=== PATIENT | male | born 1950 | race Caucasian/White ===

== ENCOUNTER 2018-01-10 07:08 | Outpatient (CLI) | payer MEDICARE, OTHER ==
--- NOTE | 2018-01-10 09:32 | Ultrasound Report ---
THYROID ULTRASOUND: 01/10/2018 CLINICAL INDICATION: Thyroid enlargement. TECHNIQUE: Real-time scanning was performed with special service representative static images obtained. FINDINGS: The right lobe measures 4.7 x 2.3 x 1.5 cm, and the left lobe measures 4.8 x 1.7 x 1.5 cm. The isthmus measures 3 mm. The thyroid demonstrates homogeneous echotexture bilaterally. No solid or cystic lesion is appreciated. No adenopathy is seen. IMPRESSION: NORMAL THYROID ULTRASOUND. TD: 01/10/2018 09:31
== END 2018-01-10 07:09 | disposition home or self-care (01) ==
LOC: DI 07:08
PROVIDERS: ATTEND Family Medicine
DX: E04.9 Nontoxic goiter, unspecified (principal)
CPT/HCPCS: 76536

== ENCOUNTER 2018-01-10 07:10 | Outpatient (CLI) | payer MEDICARE, OTHER ==
--- NOTE | 2018-01-10 12:22 | Ultrasound Report ---
ULTRASOUND OF LEFT BREAST: 01/10/2018 CLINICAL INDICATION: Painful palpable abnormality left upper inner quadrant. TECHNIQUE: Real-time scanning was performed with automotive leasing sales representative static images obtained. FINDINGS: Ultrasound of the painful palpable abnormality identified by the patient was performed. At this site, there is a 4 x 3 x 2 mm lymph node. No sonographically suspicious findings are identified. IMPRESSION: TINY LYMPH NODE, ACCOUNTING FOR THE PALPABLE ABNORMALITY. RECOMMENDATION: CONTINUED CLINICAL FOLLOWUP. BIRADS CATEGORY 2-BENIGN FINDINGS. TD: 01/10/2018 12:21
--- NOTE | 2018-01-10 12:56 | Mammography Report ---
DIGITAL DIAGNOSTIC BILATERAL MAMMOGRAM: 01/10/2018 CLINICAL INDICATION: Pain. TECHNIQUE: Bilateral CC and MLO views. A marker was placed at the site of painful palpable abnormality identified by the patient in the left upper inner quadrant. FINDINGS: The breasts demonstrate fatty replacement bilaterally. In the left upper inner quadrant, in the region of the palpable abnormality, there is a 5 mm parenchymal density. No associated calcifications are seen. Please also refer to left breast ultrasound of the same day. IMPRESSION: BENIGN FINDINGS, WITH A SMALL LYMPH NODE ON ULTRASOUND, CORRELATING WITH THE PALPABLE AND MAMMOGRAPHIC ABNORMALITY. RECOMMENDATION: CONTINUED CLINICAL MANAGEMENT. BIRADS CATEGORY 2-BENIGN FINDINGS. STANDARD QUALIFYING STATEMENTS: 1. This examination was reviewed with the aid of Computer-Aided Detection (CAD). 2. A negative or benign imaging report should not delay biopsy if clinically suspicious findings are present. Consider surgical consultation if warranted. More than 5% of cancers are not identified by imaging. 3. Dense breasts may obscure an underlying neoplasm. TD: 01/10/2018 12:55
== END 2018-01-10 07:11 | disposition home or self-care (01) ==
LOC: DI 07:10
PROVIDERS: ATTEND Family Medicine
DX: N64.4 Mastodynia (principal); E04.9 Nontoxic goiter, unspecified
CPT/HCPCS: 76536; 76642; 77066

== ENCOUNTER 2020-10-11 10:56 | Outpatient (CLI) | payer MEDICARE, OTHER ==
--- NOTE | 2020-10-11 12:30 | XRAY Report ---
PROCEDURE: Foot 2 View BILAT INDICATIONS: BILATERAL FOOT PAIN TECHNIQUE: 4 views of the foot were acquired. COMPARISON: None FINDINGS: Bones: No fractures or dislocations. No suspicious bony lesions. Soft tissues: No tibiotalar joint effusion. Achilles tendon appears normal. IMPRESSION: Normal left foot Reviewed by: Man Sosa on 10/11/2020 12:29 PM [facility] Approved by: Man Sosa on 10/11/2020 12:29 PM [facility] Station ID: [id number]
== END 2020-10-11 23:59 | disposition home or self-care (01) ==
LOC: DI.N 10:56
PROVIDERS: ATTEND Family Medicine
DX: M79.671 Pain in right foot (principal); M79.672 Pain in left foot
CPT/HCPCS: 36415; 80048; 84550; 85025

== ENCOUNTER → 2020-10-11 | Outpatient (CLI) | payer MEDICARE, OTHER ==
[2020-10-11 18:47] LABS: BASOPHILS % (AUTO) 0.5 %; EOSINOPHILS # (AUTO) 0.2 10^3/uL (0.0-0.7); EOSINOPHILS % (AUTO) 4.7 %; HGB - HEMOGLOBIN 13.9 g/dL (14.0-18.0); LYMPHOCYTES % (AUTO) 22.5 %; MEAN CORPUSCULAR HEMOGLOBIN 32.4 pg (27.0-31.0); MEAN CORPUSCULAR VOLUME 98.1 fL (80.0-94.0); MEAN PLATELET VOLUME 10.1 fL (7.4-11.4); MONOCYTES # (AUTO) 0.5 10^3/uL (0.0-1.0); MONOCYTES % (AUTO) 10.5 %; NEUTROPHILS # (AUTO) 2.6 10^3/uL (1.5-6.6); NEUTROPHILS % (AUTO) 61.6 %; PLT - PLATELET COUNT 266 10^3/uL (130-450); RED BLOOD COUNT 4.29 10^6/uL (4.70-6.10); RED CELL DISTRIBUTION WIDTH 12.7 % (12.0-15.0); WHITE BLOOD COUNT 4.3 x10^3/uL (4.8-10.8)
[2020-10-11 18:58] LABS: CALCIUM 9.9 mg/dL (8.5-10.3); URIC ACID 5.9 mg/dL (2.6-7.2)
== END ==
LOC: LAB.N 11:01
PROVIDERS: ATTEND Family Medicine
DX: M79.673 Pain in unspecified foot (principal)
CPT/HCPCS: 36415; 80048; 84550; 85025

== ENCOUNTER 2023-01-21 10:16 | Outpatient (CLI) | payer MEDICARE, OTHER ==
--- NOTE | 2023-01-21 15:37 | XRAY Report ---
PROCEDURE: Knee 4 View BILAT INDICATIONS: BILAT KNEE PAIN TECHNIQUE: 4 views of the bilateral knee(s) were acquired. COMPARISON: X-ray knees 12/11/2018 FINDINGS: Bones: No fractures or dislocations. No suspicious bony lesions. There is bilateral moderate to s evere medial compartment narrowing shown mild progression compared to prior exam. Mild patellofemoral compartment narrowing is present bilaterally. Patella periarticular osteophytes are present. No eros ions. Soft tissues: Minimal bilateral effusions. No suspicious soft tissue calcifications. IMPRESSION: Prominent medial compartment arthritic change bilaterally slightly progressive compared to prior exam. Reviewed by: Zoie Santiago MD on 01/21/2023 3:36 PM PST Approved by: Zoie Santiago MD on 01/21/2023 3:36 PM PST Station ID: [id number]
== END 2023-01-21 10:36 | disposition home or self-care (01) ==
LOC: DI.WOS 10:16
PROVIDERS: ATTEND Physician Assistant Surgical
DX: M17.0 Bilateral primary osteoarthritis of knee (principal)

== ENCOUNTER 2023-02-02 13:57 | Outpatient (CLI) | payer MEDICARE, OTHER ==
--- NOTE | 2023-02-02 14:30 | XRAY Report ---
PROCEDURE: Hip 2 View RT INDICATIONS: RIGHT HIP PAIN TECHNIQUE: An AP view of the pelvis and a crosstable lateral view of the hip were acquired. COMPARISON: 09/02/2017 FINDINGS: Bones: No fractures or dislocations. No suspicious bony lesions. The visualized pelvic ring appear s intact. There is prominence of the bilateral superior anterior femoral head and neck junctions, con sistent with cam-type impingement. There is progression of bilateral degenerative arthritis of the hi ps, now moderate bilaterally. Soft tissues: No suspicious soft tissue calcifications or masses. Prostate implant seeds IMPRESSION: 1. Prostate implant seeds. No evidence of lytic or blastic bony disease. 2. No evidence of acute fracture or dislocation. 3. Cam-type impingement bilaterally with progressive, moderate bilateral hip degenerative change. Reviewed by: Minh Ribeiro MD on 02/02/2023 2:28 PM PDT Approved by: Minh Ribeiro MD on 02/02/2023 2:28 PM PDT Station ID: [id number]
== END 2023-02-02 14:01 | disposition home or self-care (01) ==
LOC: DI.WOS 13:57
PROVIDERS: ATTEND Physician Assistant Surgical
DX: M16.0 Bilateral primary osteoarthritis of hip (principal); M25.852 Other specified joint disorders, left hip; M25.851 Other specified joint disorders, right hip; Z92.3 Personal history of irradiation

== ENCOUNTER 2023-02-08 10:30 | Outpatient (CLI) | payer MEDICARE, OTHER ==
--- NOTE | 2023-02-08 11:21 | XRAY Report ---
PROCEDURE: Ankle 3 View RT INDICATIONS: RIGHT ANKLE PAIN TECHNIQUE: 3 views of the ankle were acquired. COMPARISON: None. FINDINGS: Bones: Plantar calcaneal enthesophyte. No fractures or dislocations. Tibiotalar joint space is maint ained. Ankle mortise is normally aligned. No suspicious bony lesions. Soft tissues: Small to moderate tibiotalar joint effusion. Achilles tendon appears normal. IMPRESSION: Small to moderate tibiotalar effusion without acute fracture or dislocation. Effusion ma y be due to ligamentous injury or degenerative change. Reviewed by: Tor Stephen MD on 02/08/2023 11:20 AM PDT Approved by: Tor Stephen MD on 02/08/2023 11:20 AM PDT Station ID: [id number]
== END 2023-02-08 23:59 | disposition home or self-care (01) ==
LOC: DI.WOS 10:30
PROVIDERS: ATTEND Physician Assistant Surgical
DX: M25.471 Effusion, right ankle (principal); M25.571 Pain in right ankle and joints of right foot

== ENCOUNTER 2023-09-23 10:15 | Outpatient (CLI) | payer MEDICARE, OTHER ==
--- NOTE | 2023-09-23 19:06 | XRAY Report ---
PROCEDURE: Knee 4 View RT INDICATIONS: RIGHT KNEE PAIN TECHNIQUE: 3 views of the knee was obtained. COMPARISON: None FINDINGS: Severe medial compartment joint space narrowing without marginal osteophyte. Mild patellofemoral join t space narrowing. Small joint effusion Bones: No fractures or dislocations. No suspicious bony lesions. Soft tissues: Small knee joint effusion. No suspicious soft tissue calcifications or masses. IMPRESSION: Moderate to severe osteoarthritis and small joint effusion Reviewed by: Santiago Shields MD on 09/23/2023 6:05 PM [facility] Approved by: Santiago Shields MD on 09/23/2023 6:05 PM [facility] Station ID: [id number]
== END 2023-09-23 23:59 | disposition home or self-care (01) ==
LOC: DI.WOS 10:15
PROVIDERS: ATTEND Orthopaedic Surgery
DX: M17.0 Bilateral primary osteoarthritis of knee (principal); M25.461 Effusion, right knee

== ENCOUNTER 2023-09-29 06:20 | Day surgery (SDC) | payer MEDICARE, OTHER ==
[2023-09-29] MEDS ORDERED: CELECOXIB 100 MG CAPSULE PO ONE (06:36)
[2023-09-29] MEDS ORDERED: ceFAZolin 2 GM VIAL ONE (06:37)
[2023-09-29] MEDS ORDERED: ACETAMINOPHEN 500 MG TABLET PO ONE (06:37)
[2023-09-29] MEDS ORDERED: DEXAMETHASONE 10 MG/ML VIAL ONE (06:37)
[2023-09-29] MEDS ORDERED: LACTATED RINGERS 1,000 ML IV ONE ×3 (06:48→11:11)
[2023-09-29] MEDS ORDERED: PROPOFOL 500 MG/50 ML 500 MG/50 ML VIAL ONE ×3 (06:53→11:28)
[2023-09-29] MEDS ORDERED: MIDAZOLAM 2 MG/2 ML VIAL ONE (06:56)
[2023-09-29] MEDS ORDERED: TRANEXAMIC ACID 1,000 MG/10 ML VIAL ONE ×2 (06:56→12:48)
[2023-09-29] MEDS ORDERED: ONDANSETRON 4 MG/2 ML VIAL ONE (06:56)
[2023-09-29] MEDS ORDERED: dexAMETHasone 4 MG TABLET PO ONE (07:00)
[2023-09-29] MEDS ORDERED: BUPIVACAINE 0.25% PF 30 ML VIAL ONE (07:03)
[2023-09-29] MEDS ORDERED: VANCOMYCIN 1 GM VIAL ONE (07:03)
[2023-09-29] MEDS ORDERED: KETOROLAC 30 MG/ML VIAL ONE (07:03)
[2023-09-29] MEDS ORDERED: fentaNYL 100 MCG/2 ML VIAL IVP PRN (07:18)
[2023-09-29] MEDS ORDERED: ATROPINE ABBOJECT 1 MG/10 ML SYRINGE IVP PRN (07:18)
[2023-09-29] MEDS ORDERED: ONDANSETRON 4 MG/2 ML VIAL IVP PRN ×2 (07:18→10:57)
[2023-09-29] MEDS ORDERED: HYDROmorphone 0.5 MG/0.5 ML SYRINGE IVP PRN (07:18)
[2023-09-29] MEDS ORDERED: NALOXONE 0.4 MG/ML VIAL IVP PRN (07:18)
[2023-09-29] MEDS ORDERED: ePHEDrine 50 MG/ML VIAL IVP PRN (07:18)
--- NOTE | 2023-09-29 07:18 | ANESTHESIA ---
Pre-Anesthesia VS, & Labs - Diagnosis b/l knee OA - Procedure r TKA Vital Signs: Temp Pulse Resp BP Pulse Ox O2 Flow Rate 36.3 C L 48 L 12 118/79 100 09/29/23 06:45 09/29/23 06:45 09/29/23 06:45 09/29/23 06:45 09/29/23 06:45 Height: 6 ft 1 in Weight (kg): 91.6 kg Body Mass Index: 26.6 BMI Classification: Overweight - NPO >8 hours - Lab Results Current Lab Results: Laboratory Tests 09/29/23 06:44: POC Whole Bld Glucose 67 L Lab results reviewed: Yes Home Medications and Allergies Home Medications: Ambulatory Orders Calcium Carb/Mag Ox/Zinc Sulf [Umi-Mnq-Xhhl 334-134-5 mg Tab] 1 each PO DAILY 09/24/23 Cholecalciferol (Vitamin D3) [Vitamin D3] 50 mcg PO DAILY 09/24/23 bisacodyL [Dulcolax] 5 mg PO DAILY 09/24/23 Docusate Sodium [Stool Softener] 50 mg PO BID 06/03/16 Melatonin 5 mg PO DAILY 06/03/16 Sildenafil Citrate [Viagra] 100 mg PO PRN PRN 06/03/16 Simvastatin 40 mg PO DAILY 06/03/16 Naproxen Sodium [Aleve] 1 tab PO BID 11/02/16 Tamsulosin [Flomax] 0.8 tab PO DAILY 11/02/16 Calcium Carb/Mag Ox/Zinc Sulf [Thy-Xjd-Ybte 334-134-5 mg Tab] 1 each PO DAILY 09/24/23 Cholecalciferol (Vitamin D3) [Vitamin D3] 50 mcg PO DAILY 09/24/23 bisacodyL [Dulcolax] 5 mg PO DAILY 09/24/23 Allergies/Adverse Reactions: Allergies Allergy/AdvReac Type Severity Reaction Status Date / Time No Known Drug Allergies Allergy Verified 09/29/23 07:09 Anes History & Medical History - Anesthetic History Anesthesia Complications: reports: No previous complications Family history of Anesthesia Complications: Denies Family history of Malignant Hyperthermia: Denies - Medical History Cardiovascular: reports: High cholesterol, Other (poss 1st AVB on equipment monitor phototypesetting this am) Pulmonary: reports: None Gastrointestinal: reports: Chronic constipation Urinary: reports: Benign prostate hypertrophy, Other Musculoskeletal: reports: Osteoarthritis, Chronic back pain Endocrine/Autoimmune: reports: None Skin: reports: Other Smoking Status: Never smoker Psychosocial: reports: No issues indicated - Surgical History General: reports: Colonoscopy, Other Urologic: reports: Prostatic surgery Orthopedic: reports: Other Exam General: Alert, Oriented x3, Cooperative Dental: WNL Mouth Openin Fingerbreadth Neck Mobility: Normal Mallampati classification: II Thyromental Distance: 4-6 cm Respiratory: Lungs clear Cardiovascular: Regular rate Plan Anesthesia Type: General, Spinal Consent for Procedure(s) Verified and Reviewed: Yes Code Status: Attempt Resuscitation ASA classification: 2-Mild systemic disease Is this case an emergency?: No
[2023-09-29] MEDS ORDERED: LACTATED RINGERS 1,000 ML IV SCH (08:00)
[2023-09-29] MEDS ORDERED: KETOROLAC 30 MG/ML VIAL IVP ONE (08:35)
[2023-09-29] MEDS ORDERED: KETOROLAC 30 MG/ML VIAL IM ONE (08:35)
[2023-09-29] MEDS ORDERED: BUPIVACAINE 0.25% PF 30 ML VIAL SUBQ ONE (08:35)
[2023-09-29] MEDS ORDERED: VANCOMYCIN 1 GM VIAL MC ONE (08:36)
[2023-09-29] MEDS ORDERED: PHENYLEPHRINE HCL 0.5 MG/5 ML AMPULE ONE (08:47)
[2023-09-29] MEDS ORDERED: HYDROGEN PEROXIDE 3% 473 ML BOTTLE TOP ONE (08:49)
[2023-09-29] MEDS ORDERED: PROPOFOL 500 MG/50 ML 1,000 MG/100 ML VIAL ONE (08:52)
[2023-09-29] MEDS ORDERED: PROPOFOL 200 MG/20 ML VIAL IVP ONE ×2 (09:46→10:43)
[2023-09-29] MEDS ORDERED: ceFAZolin 1 GM VIAL ONE (10:36)
--- NOTE | 2023-09-29 10:52 | OPERATIVE REPORT ---
Operative Report - General Procedure Date: 09/29/23 Planned Procedure: Right total knee replacement Pre-Op Diagnosis: Osteoarthritis right knee Procedure Performed: Right total knee replacement: [employer] journey 2 cruciate retaining total knee utilizing #8 Oxinium cruciate retaining femoral component, #7 tibial baseplate, 9 mm tibial bearing, 26 mm biconvex patellar component; all components utilizing antibiotic impregnated Palacos cement Post Op Diagnosis: Same as preoperative diagnosis - Procedure Note Primary Surgeon: Zachary Duran MD Secondary Surgeon: Baldev Auguste MD, Danyelle Alas [facility] Anesthesia Provider: Alphonse Bull CRNA Anesthesia Technique: Spinal Estimated Blood Loss (mL): 200 Indications: This is a 73-year-old gentleman with symptomatic bilateral knee osteoarthritis that is progressively worsened to the point that interferes with activities and daily living and activities that he enjoys doing. He has tried conservative treatment without any long-lasting benefit. His general health has been relatively good. He does have a history of low white blood cell count and has had recent hematologic evaluation which was acceptable for this procedure. He has no history of infection his exam showed mild flexion contracture to right knee, decreased flexion, joint line tenderness, varus alignment with good stability and strength. X-rays show [id number] contact involving the medial compartment with osteophytes. There is narrowing of the lateral compartment as well and especially the patellofemoral joint with osteophytes. There is evidence of tricompartmental osteoarthritis right knee but greatest to the medial compartment. He signed informed consent and has had preoperative evaluation. He is agreement to the procedure right total knee replacement Findings: There is eburnated bone surfaces to the medial compartment and patellofemoral joint, partial and significant wear to lateral compartment but not much bone loss. There are osteophytes present about the tibiofemoral and patellofemoral joint Complications: None - Other Other Information/Narrative: The patient was brought to the operating room and was placed in a supine position. A pneumatic tourniquet was applied to the proximal right thigh over cast padding. This was a conical shaped Dayami thigh tourniquet that was sterile. A knee positioner was placed on the operating room table to facilitate knee flexion of the right knee during surgery. A timeout procedure was performed by the entire operating room team and all were in agreement. A midl ine longitudinal incision was made with the knee in flexion. A medial parapatellar arthrotomy was made. The anterior horn of medial and lateral menisci were released and part of patellar fat pad was excised. The knee was flexed and the patella was dislocated laterally. A drill hole was made in the intramedullary notch with a 9.5 mm drill. Osteophytes about the proximal tibia and femur had been removed with a rongure. The distal femoral cutting guide was aligned parallel to the posterior condyles. The intramedullary kimberly and guide was advanced and the distal femoral guide was stabilized with half pins. The distal 5 degrees valgus cut was made through the distal femoral guide. Next the extra medullary tibial guide was assembled and applied and aligned to the mechanical axis in both sagittal and coronal planes. Tibial referencing was done to allow 3 mm of bone from the most affected side . The tibial guide was stabilized with half pins. Retractors were placed medially and laterally to protect the collateral ligaments and a retractor was placed directly against the posterior bone to sublux the tibia anteriorly. A Sandag saw was used to make the tibial proximal cut. The tibial block was removed as a single piece and the menisci were removed as well. The extension gap was assessed with a extension block spacer using a 10 mm spacer and this was found to fit well as well as the 10 mm spacer block with the knee in 90 degrees of flexion. Next the femoral positioning guide was applied and aligned to the epicondylar axis and Abigail line. This was secured in place with approximately 3 degrees of external rotation. The size of the femur at the anterior lateral trochlea was a #8. Drill holes were made in the 5 and 1 #8 cutting block was inserted and sec ured. The 5 cuts were made to the captured block using precision saw. The flexion gap was assessed with the 11 mm spacer and was found to fit well. The patella was then prepared. A biconvex patellar reamer was used. The tibial trial #7 was then applied to the tibia and aligned to the mechanical axis. The punch fin was utilized. Trial reduction was performed with the femoral and tibial components in place. Notch resection was then through the trial component with reamer and box osteotome. Pulsatile lavage was performed. A tourniquet was applied during the cementing process. The components were inserted sequentially: Tibia, femur and lastly patellar component. Excess cement was removed and the knee was placed in extension during the hardening. Dilute Betadine irrigation was performed. The knee had full range of motion, good patellar tracking. There was good stability of the knee in full extension mid flexion and 90 degrees of flexion. There was good alignment of the right knee. The tourniquet had been deflated and had been in place for 21 minutes. Hemostasis was achieved with electrocautery. The deep closure was performed with #1 Ethibond proximal and distal to the patella with the knee in 40 degrees of flexion. #1 Stratofix suture was then used to close the arthrotomy incision. 2-0 stratofix was used to close the subcutaneous tissue. 3-0 Monocryl was used to do a subcuticular skin closure. Dermabond was applied to the skin incision. After the Dermabond had hardened, a silver impregnated dressing was applied. The patient tolerated the procedure well and received 2 g of Ancef intravenously and 2 g of tranexamic acid.A physician facilities maintenance assistant was used and felt to be medically necessary to provide retraction, protection of vital structures, exposure, skin closure and dressing.
[2023-09-29] MEDS ORDERED: oxyCODONE 5 MG TABLET PO PRN (10:57)
[2023-09-29] MEDS ORDERED: fentaNYL 250 MCG/5 ML VIAL IVP PRN (10:57)
[2023-09-29] MEDS ORDERED: DOCUSATE SODIUM 100 MG CAPSULE PO PRN (10:57)
[2023-09-29] MEDS ORDERED: SODIUM CHLORIDE FLUSH 0.9% 10 ML SYRINGE IVP PRN (10:57)
[2023-09-29] MEDS ORDERED: ACETAMINOPHEN 500 MG TABLET PO SCH (11:00)
[2023-09-29] MEDS ORDERED: traMADol 50 MG TABLET PO SCH (12:00)
[2023-09-29] MEDS ORDERED: BUPIVACAINE 0.5% PF 10 ML VIAL ONE (12:59)
[2023-09-29] MEDS: ACETAMINOPHEN 500 MG TABLET PO SCH ×2 (13:27→19:55)
[2023-09-29] MEDS: NS W/20 MEQ KCL 1,000 ML IV SCH (13:27)
[2023-09-29] MEDS: ceFAZolin (2G) 2 GM in SODIUM CHLORIDE 0.9% MINIBAG 100 ML IV SCH ×2 (13:27→19:57)
[2023-09-29] MEDS: traMADol 50 MG TABLET PO SCH ×2 (15:29→21:14)
--- NOTE | 2023-09-29 15:42 | ANESTHESIA POST OP EVALUATION ---
Anesthesia Post Eval - Post Anesthesia Eval Vitals: Last Vital Signs Temp 36.6 C 09/29/23 13:36 Pulse 57 L 09/29/23 13:36 Resp 16 09/29/23 13:36 BP 115/59 L 09/29/23 13:36 Pulse Ox 99 09/29/23 13:36 O2 Flow Rate CV Function Including HR & BP: Stable Pain Control: Satisfactory Nausea & Vomiting: Negative Mental Status: Baseline Respiratory Status: Airway Patent Hydration Status: Satisfactory Anesthesia Complications: None
--- NOTE | 2023-09-29 19:20 | XRAY Report ---
PROCEDURE: Knee 2 View RT INDICATIONS: post operative imaging TECHNIQUE: 3 views of the knee was obtained. COMPARISON: 09/23/2023 FINDINGS: Bones: Interval total knee prosthesis is well-positioned. No evidence of fracture or hardware failur e Soft tissues: Postprocedural soft tissue air noted to. IMPRESSION: Right total knee arthroplasty in good position Reviewed by: Santiago Shields MD on 09/29/2023 6:18 PM [facility] Approved by: Santiago Shields MD on 09/29/2023 6:18 PM [facility] Station ID: [id number]
[2023-09-29] MEDS: SODIUM CHLORIDE FLUSH 0.9% 10 ML SYRINGE IVP SCH ×2 (19:57→23:59)
[2023-09-29] MEDS: CELECOXIB 100 MG CAPSULE PO SCH (21:14)
[2023-09-29] MEDS: DOCUSATE SODIUM 100 MG CAPSULE PO SCH (21:15)
[2023-09-29] MEDS: ethyl alcohoL 62% SWAB AMPULE NAS SCH (21:15)
[2023-09-30] MEDS: ACETAMINOPHEN 500 MG TABLET PO SCH ×2 (01:21→08:48)
[2023-09-30] MEDS: traMADol 50 MG TABLET PO SCH ×2 (02:54→09:57)
[2023-09-30] MEDS: NS W/20 MEQ KCL 1,000 ML IV SCH (02:54)
[2023-09-30 05:06] VITALS: O2SAT 99
[2023-09-30] MEDS: ASPIRIN EC 81 MG TABLET PO SCH ×2 (06:35→08:47)
--- NOTE | 2023-09-30 07:54 | PROVIDER PROGRESS NOTE ---
Subjective - General Procedure Date: 09/29/23 Post Op Days: 1 Procedure Performed: Right total knee arthroplasty - Other Other Information/Narrative: patient awake, lying semirecumbent in bed He denies chest pain, dyspnea, nausea and vomiting He worked with physical therapy yesterday and is ambulating well with a front wheeled walker He states he is "ready to go home" and shares that he has passed urine and is eating without concern he states he is looking forward scheduling his left total knee arthroplasty soon Objective - Patient Data Reviewed Vital Signs: Yes Vital Signs: Vital Signs x48h Temp Pulse Pulse Resp BP Pulse Ox 09/30/23 05:00 36.7 C 52 L 20 101/52 L 99 09/30/23 00:40 36.7 C 58 L 20 104/59 L 96 Weight: Weight 09/28/23 09/29/23 09/30/23 23:59 23:59 23:59 Weight (kg) 91.6 kg Intake & Output: Intake and Output Totals x24h 09/28/23 09/29/23 09/30/23 23:59 23:59 23:59 Intake Total 2550 1000 Output Total 1000 300 Balance 1550 700 - Imaging Results Radiology Imaging: positive: Final report received - Current Medications Current Medications: Current Medications Generic Name Dose Route Start Last Admin Trade Name Freq PRN Reason Stop Dose Admin Acetaminophen 1,000 mg 09/29/23 13:30 09/30/23 01:21 Acetaminophen 500 Mg Tablet PO 1,000 mg Q6H JOSE FRANCISCO Administration Alcohol 1 amp 09/29/23 21:00 09/29/23 21:15 Ethyl Alcohol 62% Swab Ampule CHESTER 1 amp BID JOSE FRANCISCO Administration Aspirin 81 mg 09/30/23 07:00 09/30/23 06:35 Aspirin Ec 81 Mg Tablet PO 81 mg BID JOSE FRANCISCO Administration Celecoxib 200 mg 09/29/23 21:00 09/29/23 21:14 Celecoxib 100 Mg Capsule PO 200 mg BID JOSE FRANCISCO Administration Docusate Sodium 100 mg 09/29/23 21:00 09/29/23 21:15 Docusate Sodium 100 Mg Capsule PO 100 mg BID JOSE FRANCISCO Administration Potassium Chloride/Sodium Chloride 1,000 mls @ 75 mls/hr 09/29/23 11:00 09/30/23 02:54 Normal Saline 0.9% W/20 Meq Kcl IV 75 mls/hr .[id number] JOSE FRANCISCO Administration Sodium Chloride 10 ml 09/29/23 17:00 09/29/23 23:59 Sodium Chloride Flush 0.9% 10 Ml Syringe IVP Not Given 0100,0900,1700 [facility] Tramadol HCl 50 mg 09/29/23 14:30 09/30/23 02:54 Tramadol 50 Mg Tablet PO 50 mg Q6H JOSE FRANCISCO Administration - Physical Exam Comments/Other: well-developed, nourished, 73-year-old male, no acute distress Dressing is dry and intact to right knee secured by Lukas bandage. No drainage to Mepilex dressing. No hematoma formation Neurovascular intact in the femoral and sciatic nerve distributions. He has flexion to about 85 degrees today ABX Reporting Has patient been on IV antibiotics over the past 48 hours?: Yes Impression/Plan - Problem List Problem List: 73 year old male with a past medical history of prostate cancer and basal cell carcinoma is postoperative day 1 from a right total knee arthroplasty by Dr. Duran at [facility] on 09/29/2023. He is recovering well on postop day 1 and has worked with physical therapy who recommends discharge home after another session this morning. Patient is eager to return home and reports well-controlled pain without acute concerns today. Plan: - DVT prophylaxis with 81 mg of aspirin twice daily for 6 weeks, SCDs in hospital - Physical and occupational therapy evaluation today and assessment for discharge home - Pain control with scheduled tylenol, celebrex, tramadol and oxycodone and IV fentanyl as needed - Weight bearing as tolerated with front wheeled walker at all times - Follow up with orthopedic clinic in 5 days - Mepilex dressing to remain in place until follow up - Refer to OPS discharge instructions and call the orthopedic office with outstanding questions - Bowel regimen - Normal diet, IV fluids to be discontinued when tolerating oral diet without nausea and emesis - Home medications resumed
[2023-09-30] MEDS: DOCUSATE SODIUM 100 MG CAPSULE PO SCH (08:47)
[2023-09-30] MEDS: CELECOXIB 100 MG CAPSULE PO SCH (08:47)
[2023-09-30] MEDS: ethyl alcohoL 62% SWAB AMPULE NAS SCH (08:49)
[2023-09-30] MEDS: SODIUM CHLORIDE FLUSH 0.9% 10 ML SYRINGE IVP SCH (08:50)
[2023-09-30 08:58] VITALS: BP 110/63
[2023-09-30] MEDS ORDERED: TAMSULOSIN 0.4 MG CAPSULE PO SCH (09:00)
== END 2023-09-30 12:08 | disposition home or self-care (01) ==
LOC: SDS 06:20 → MS2 08:36 → SDS 09-30 12:08
PROVIDERS: ATTEND Orthopaedic Surgery
DX: M17.11 Unilateral primary osteoarthritis, right knee (principal); D72.819 Decreased white blood cell count, unspecified; N40.0 Benign prostatic hyperplasia without lower urinary tract symptoms; Z85.46 Personal history of malignant neoplasm of prostate; Z85.828 Personal history of other malignant neoplasm of skin
CPT/HCPCS: 27447; 73560; 97110; 97116; 97161; 97166; 97530; A9270; C1713; J2372; J3370; J7120

== ENCOUNTER 2023-11-08 11:15 | Outpatient (CLI) | payer MEDICARE, OTHER ==
--- NOTE | 2023-11-08 14:08 | XRAY Report ---
PROCEDURE: Knee 4 View RT INDICATIONS: RIGHT TOTAL KNEE TECHNIQUE: 4 views of the knee(s) were acquired. COMPARISON: 09/29/2023, 09/23/2023 FINDINGS: Bones: Right knee arthroplasty components are in expected position. The knee joint is congruent. No unexpected fractures. No periprosthetic lucencies. Incidental note of moderate left medial compartmen t joint space loss and mild spurring. Soft tissues: Moderate-sized knee joint effusion. No suspicious soft tissue calcifications or masses . IMPRESSION: Expected appearance post right knee arthroplasty with residual moderate-sized joint effusion. Reviewed by: Stella Rice MD on 11/08/2023 2:06 PM PST Approved by: Stella Rice MD on 11/08/2023 2:06 PM PST Station ID: [id number]
== END 2023-11-08 23:59 | disposition home or self-care (01) ==
LOC: DI.WOS 11:15
PROVIDERS: ATTEND Orthopaedic Surgery
DX: Z96.651 Presence of right artificial knee joint (principal); M25.461 Effusion, right knee

== ENCOUNTER 2023-12-09 10:32 | Outpatient (CLI) | payer MEDICARE, OTHER ==
--- NOTE | 2023-12-09 16:51 | XRAY Report ---
PROCEDURE: Knee 4 View LT INDICATIONS: LEFT KNEE PAIN TECHNIQUE: 4 views of the knee(s) were acquired. COMPARISON: None. FINDINGS: Bones: No fractures or dislocations. Moderate to severe compartmental osteoarthritis in left knee is seen most notable in medial femoral tibial compartment. No patella subluxation. No suspicious bony lesions. Soft tissues: Small to moderate suprapatellar knee joint effusion. No suspicious soft tissue calcifi cations or masses. IMPRESSION: No acute bony abnormality. Moderate to severe tricompartmental osteoarthritis most notably in medial femoral tibial compartment and small to moderate joint effusion. Reviewed by: Marc Mittal MD on 12/09/2023 4:49 PM PST Approved by: Marc Mittal MD on 12/09/2023 4:49 PM PST Station ID: [id number]
== END 2023-12-09 23:59 | disposition home or self-care (01) ==
LOC: DI.WOS 10:32
PROVIDERS: ATTEND Orthopaedic Surgery
DX: M17.12 Unilateral primary osteoarthritis, left knee (principal); M25.462 Effusion, left knee

== ENCOUNTER 2024-02-02 07:54 | Day surgery (SDC) | payer MEDICARE, OTHER ==
[~2024-02-02 07:54] MED LIST: BUPIVACAINE 0.25% PF 30 ML VIAL ONE; DEXAMETHASONE 10 MG/ML VIAL ONE; KETOROLAC 30 MG/ML VIAL ONE; VANCOMYCIN 1 GM VIAL ONE; ceFAZolin 2 GM VIAL ONE
[2024-02-02] MEDS: ACETAMINOPHEN 500 MG TABLET PO ONE (08:07)
[2024-02-02] MEDS: LACTATED RINGERS 1,000 ML IV ONE (08:07)
[2024-02-02] MEDS: CELECOXIB 100 MG CAPSULE PO ONE (08:07)
[2024-02-02] MEDS ORDERED: MIDAZOLAM 2 MG/2 ML VIAL ONE (08:11)
[2024-02-02] MEDS ORDERED: fentaNYL 100 MCG/2 ML VIAL ONE (08:11)
[2024-02-02] MEDS ORDERED: PROPOFOL 500 MG/50 ML 0 MG/0 ML VIAL ONE (08:12)
[2024-02-02] MEDS ORDERED: BUPIVACAINE 0.5% PF 10 ML VIAL ONE (08:15)
[2024-02-02] MEDS ORDERED: TRANEXAMIC ACID 1,000 MG/10 ML VIAL ONE (08:21)
[2024-02-02 08:29] VITALS: BP 115/78; O2SAT 100
== END 2024-02-02 07:55 | disposition home or self-care (01) ==
LOC: SDS 07:54
PROVIDERS: ATTEND Orthopaedic Surgery
DX: M17.0 Bilateral primary osteoarthritis of knee (principal); Z53.09 Procedure and treatment not carried out because of other contraindication
CPT/HCPCS: 93005; A9270; J3370; J7120